=== PATIENT | male | born 1940 | race African-American/Black ===

== ENCOUNTER 2017-02-15 05:31 | Day surgery (SDC) | payer MEDICARE ==
[2017-02-14 15:54] LABS: APTT 30.1 SECONDS (22.8-39.4); INR 0.99 (0.85-1.17); PROTIME 12.9 SECONDS (11.6-15.0)
[2017-02-14 15:55] LABS: CALC OSMOLALITY 287 mosm/kg (275-300); CALCIUM 8.9 mg/dL (8.5-10.1); CARBON DIOXIDE 25.9 mmol/L (21.0-32.0); CHLORIDE - SERUM 108 mmol/L (98-107); GLUCOSE 100 mg/dL (74-106); POTASSIUM - SERUM 4.9 mmol/L (3.5-5.1); SODIUM 144 mmol/L (136-145); UREA NITROGEN 15 mg/dL (7-18); eGFR NON AFRICAN AMERICAN 77 mL/min (90-120)
[2017-02-14 15:57] LABS: HEMATOCRIT 35.3 % (42.0-54.0); HEMOGLOBIN 11.8 g/dL (13.5-17.5); MCH 33.6 pg (26.0-34.0); MCHC 33.4 g/dL (31.0-37.0); MCV 100.6 fL (80.0-100.0); MEAN PLATELET VOLUME 10.1 fL (7.4-10.4); RBC 3.51 10x6/uL (4.20-6.10); RDW 12.5 % (11.5-14.5)
[~2017-02-15] VITALS: Ht 174 cm; Wt 80.7 kg
--- NOTE | ~2017-02-15 | OP ---
PATIENT NAME: ROJELIO ARAIZA JR MEDICAL RECORD: [id number] :42 LOCATION:[facility] ADMISSION DATE: SURGEON: SOILA WEISS MD DATE OF OPERATION: 02/15/2017 PREOPERATIVE DIAGNOSES: Left shoulder impingement, acromioclavicular joint degenerative joint disease and rotator cuff tear. POSTOPERATIVE DIAGNOSES: Left shoulder impingement, acromioclavicular joint degenerative joint disease and rotator cuff tear. PROCEDURES PERFORMED: Left shoulder arthroscopic subacromial decompression, distal clavicle excision with open rotator cuff repair. SURGEON: Walter Weiss MD. ANESTHESIA: General with interscalene block for postop pain. CONDITION: The patient tolerated the procedure well, was transferred to the recovery room in stable condition at termination of the procedure. INDICATIONS: This is a 76-year-old gentleman, who is having pain in his shoulder. He is having pain with elevation, overhead activities and pain at night. This has not been getting any better. Definitely had findings consistent with impingement, AC joint DJD, some concern for rotator cuff tear as well. We discussed risks, benefits, and alternatives of surgery. He understood and wished to proceed. OPERATIVE REPORT: The patient was taken to the operating room and placed in supine position. General anesthesia was obtained. Left shoulder was confirmed to be the correct shoulder. He did receive antibiotics per protocol. After this was accomplished, the procedure was begun by marking out portal sites then injecting them with 0.25% Marcaine with epinephrine. I established the scope in the posterior portal and under direct visualization, I established an anterior portal. I then proceeded to inspect the glenohumeral joint. Overall, the glenohumeral joint looked very good. There were no significant changes in the cartilage. The biceps tendon looked very good. He did have a little fraying on his labrum, which was debrided. Going up under the cuff, he did have a partial thickness supraspinatus tear, which I was able to see essentially through it to the outside. I went to the top and took the scope out, placed it in the subacromial space, debrided the bursa, took off the undersurface of the acromion and the AC joint. I then made a small lateral incision, took this down, identified the rotator cuff tear and after doing so, roughened up the edge of the cuff, roughened up the bone with a mathew and a rongeur. I then placed 3 sutures into the rotator cuff, following which, I brought the cuff over to the footprint area with two 4.5 [place] suture anchors. He tolerated this well, was irrigated and closed with 2-0 Vicryl, then 3-0 Prolene, awakened and transferred to recovery room in stable condition, having tolerated the procedure well. We will have him go slow on his initial range of motion. No active motion, passive only. We will see him back in the office in about 2 weeks. TRANSINT:[id number] Voice Confirmation ID: [id number] DOCUMENT ID: [id number] OPERATIVE REPORT [id number] ROJELIO ARAIZA JR, GORDON TROY MD CC: [id number] DICTATION DATE: 02/15/17944 EKG TECH: 02/15/17 1257 [facility] 02/15/17 [id number] [place] [address]
[~2017-02-15 05:31] MED LIST: CHILDREN'S ASPI81 MG PO; FLOMAX0.4 MG PO; GLUCOPHAGE500 MG PO; METFORMIN PO; MULTIPLE VITAMI1 TA1 PO; PEPCID20 MG PO; PLAVIX75 MG PO; PRAVACHOL40 MG PO; TOPROL XL25 MG PO; VITAMIN D31000 UNI2 PO
[2017-02-15 06:37] VITALS: Ht 174 cm; Wt 80.7 kg
[2017-02-15] MEDS ORDERED: CYCLOBENZAPRINE10 MG PO (09:40)
[2017-02-15] MEDS ORDERED: HYDROCODONE-APA1 TAB PO (09:40)
--- NOTE | 2017-02-15 12:09 | NUR ---
1100 IV DC WITH CATHER TIP INTACT
== END 2017-02-15 11:30 | disposition home or self-care (01) ==
LOC: D.OPS 05:31 → D.PAN 08:30 → D.OPS 08:30
PROVIDERS: Anesthesiology
DX: M75.42 Impingement syndrome of left shoulder (principal); M19.012 Primary osteoarthritis, left shoulder; M75.102 Unspecified rotator cuff tear or rupture of left shoulder, not specified as traumatic

== ENCOUNTER 2017-05-31 22:52 | Emergency (ER) | payer MEDICARE ==
[2017-02-15 06:37] VITALS: BMI 26.7
[~2017-05-31 22:52] MED LIST changes: +CYCLOBENZAPRINE10 MG PO; +HYDROCODONE-APA1 TAB PO
== END 2017-05-31 23:17 | disposition home or self-care (01) ==
LOC: D.ER 22:52
DX: T78.40XA Allergy, unspecified, initial encounter (principal); X58.XXXA Exposure to other specified factors, initial encounter; N40.0 Benign prostatic hyperplasia without lower urinary tract symptoms; Z95.1 Presence of aortocoronary bypass graft